=== PATIENT | male | born 1970 | race Caucasian/White ===

== ENCOUNTER 2016-05-01 12:05 | Emergency (ER) | payer MEDICAID ==
[2016-05-01 13:04] VITALS: BP 163/93
--- NOTE | 2016-05-01 13:12 | EDM.PDOC ---
ED HPI Skin/Rash - General Chief Complaint: Skin Complaint Stated Complaint: EAR Time Seen by Provider: 05/01/16 12:11 Source: Reports: Patient History Limitations: Reports: No limitations - History of Present Illness INITIAL COMMENTS - FREE TEXT/NARRATIVE: [HISTORY AND PHYSICAL: 45-year-old male who for 2 days has had left ear pain. Pinna is enlarged exudate is weeping yellowish in color] History of Present Illness: [2 day history of pain] Review of Systems: As per history of present illness and below otherwise all systems reviewed and negative. Past medical history: As per history of present illness and as reviewed below otherwise noncontributory. Surgical history: As per history of present illness and as reviewed below otherwise noncontributory. Social history: No reported history of drug or alcohol abuse. Family history: As per history of present illness and as reviewed below otherwise noncontributory. Physical exam: Alert and oriented male. Answering questions appropriately. HEENT: Atraumatic, normocehpalic, pupils reactive, negative for conjunctival pallor or scleral icterus, mucous membranes moist, throat clear, neck supple, nontender, trachea midline. Left pinna with edema, exudate weeping, yellow in color, surrounding area with erythema Lungs: Clear to auscultation, breath sounds equal bilaterally, chest non tender. Heart: S1S2, regular, negative for clicks, rubs, or JVD. Abdomen: Soft, nondistended, nontender. Negative for masses or hepatossplenmegaly. Negative for costovertebral tenderness. Extremities: Atraumatic, negative for cords or calf pain. Neurovascular unremarkable. Neuro: Awake, alert, oriented. Cranial nerves II through XII unremarkable. Cerebellum unremarkable. Motor and sensory unremarkable throughout. Exam nonfocal. Lidocaine injected in small incision was made small amount of material was expressed. Patient is unable to tolerate more pain at this time. Past admissions to contact Dr. Chaudhary. Diagnostics: [] Therapeutics: [] Impression: [abcess of pinna left ear] Plan: [] Definitive disposition and diagnosis as appropriate pending reevaluation and review of above. ] History of Present Illness: [] Review of Systems: As per history of present illness and below otherwise all systems reviewed and negative. Past medical history: As per history of present illness and as reviewed below otherwise noncontributory. Surgical history: As per history of present illness and as reviewed below otherwise noncontributory. Social history: No reported history of drug or alcohol abuse. Family history: As per history of present illness and as reviewed below otherwise noncontributory. Physical exam: HEENT: Atraumatic, normocehpalic, pupils reactive, negative for conjunctival pallor or scleral icterus, mucous membranes moist, throat clear, neck supple, nontender, trachea midline. Lungs: Clear to auscultation, breath sounds equal bilaterally, chest non tender. Heart: S1S2, regular, negative for clicks, rubs, or JVD. Abdomen: Soft, nondistended, nontender. Negative for masses or hepatossplenmegaly. Negative for costovertebral tenderness. Pelvis: Stable nontender. Genitourinary: Deferred. Rectal: Deferred Extremities: Atraumatic, negative for cords or calf pain. Neurovascular unremarkable. Neuro: Awake, alert, oriented. Cranial nerves II through XII unremarkable. Cerebellum unremarkable. Motor and sensory unremarkable throughout. Exam nonfocal. Have spoken with Dr. Chaudhary who will see the patient in her office. Diagnostics: [] Therapeutics: [let gel] Impression: [abcess to pinna] Plan: [Discharged from the emergency room patient presented to Dr. Chaudhary's office] Definitive disposition and diagnosis as appropriate pending reevaluation and review of above. - Related Data Allergies Allergy/AdvReac Type Severity Reaction Status Date / Time No Known Allergies Allergy Verified 05/01/16 13:03 Home Meds: Ambulatory Orders Medication Instructions Recorded Confirmed Lisinopril [Zestril] 1 tab DAILY 05/01/16 05/01/16 ED ROS GENERAL - Review of Systems Review Of Systems: ROS reveals no pertinent complaints other than HPI. ED EXAM, SKIN/RASH Exam: See Below (see dictation) Course - Vital Signs Last Recorded V/S: Last Vital Signs Temp 36.7 C 05/01/16 12:10 Pulse 126 H 05/01/16 12:10 Resp 18 05/01/16 12:10 BP 163/93 H 05/01/16 12:10 Pulse Ox 95 05/01/16 12:10 - Orders/Labs/Meds Meds: Medications Discontinued Medications Generic Name Dose Route Start Last Admin Trade Name Freq PRN Reason Stop Dose Admin Lidocaine HCl 20 ml 05/01/16 12:43 Xylocaine 1% INJECT 05/01/16 12:44 ONETIME ONE Lidocaine/Tetracaine 1 ml 05/01/16 13:05 05/01/16 13:13 Let Soln TOP 05/01/16 13:06 1 ml ONETIME ONE Administration Departure - Departure Time of Disposition: 13:21 Disposition: Home, Self-Care 01 Condition: good Clinical Impression: Abscess Forms: ED Department Discharge
[2016-05-01] MEDS: Lidocaine/EPINEPHrine/Tetracaine Soln 1 ML TOP ONE (13:13)
[2016-05-01] MEDS: Lidocaine 1% 20 ML MDV INJECT ONE (13:37)
== END 2016-05-01 13:25 | disposition home or self-care (01) ==
LOC: MW.ED 12:05
DX: H66.42 Suppurative otitis media, unspecified, left ear (principal)
CPT/HCPCS: 99282; 99283

== ENCOUNTER 2016-05-14 17:13 | Emergency (ER) | payer MEDICAID ==
[2016-05-14] MEDS ORDERED: methylPREDNISolone Sodium Succinate 125 MG/2 ML SDV IM ONE (17:17)
[2016-05-14] MEDS ORDERED: Famotidine 20 MG Tab PO ONE (17:18)
--- NOTE | 2016-05-14 17:20 | EDM.PDOC ---
ED HPI Allergic Reaction - General Chief Complaint: Allergic Reaction Stated Complaint: PT HAS ALLERGIC REACTION TO MEDICATION Time Seen by Provider: 05/14/16 17:17 - History of Present Illness INITIAL COMMENTS - FREE TEXT/NARRATIVE: History of present illness: [] 45-year-old male with swelling of his lips and hives that started 9.30 am this morning. He took 4 pills of benadryl and drank the benadryl liquid. He is on bactrim. He had similar reaction with augmentin. He denies respiratory distress, sob, cough, throat swelling, wheezing or ther pertinent symptoms. Review of systems: As per history of present illness and below otherwise all systems reviewed and negative. Past medical history: As per history of present illness and as reviewed below otherwise noncontributory. Surgical history: As per history of present illness and as reviewed below otherwise noncontributory. Social history: No reported history of drug or alcohol abuse. Family history: As per history of present illness and as reviewed below otherwise noncontributory. Physical exam: General: Well developed, well nourished in NAD HEENT: Atraumatic, normocephalic, pupils reactive, negative for conjunctival pallor or scleral icterus, mucous membranes moist, throat clear, neck supple, nontender, trachea midline. Lungs: Clear to auscultation, breath sounds equal bilaterally, chest nontender. Heart: S1S2, regular, negative for clicks, rubs, or JVD. Abdomen: Soft, nondistended, nontender. Negative for masses or hepatosplenomegaly. Negative for costovertebral tenderness. Pelvis: Stable nontender. Genitourinary: Deferred. Rectal: Deferred. Extremities: Atraumatic, negative for cords or calf pain. Neurovascular unremarkable. Neuro: Awake, alert, oriented. Cranial nerves II through XII unremarkable. Cerebellum unremarkable. Motor and sensory unremarkable throughout. Exam nonfocal. Diagnostics: [] Therapeutics: [Solu-Medrol IM x1, Pepcid by mouth x1] Impression: [Ju edema most likely secondary to Bactrim] Plan: [Patient like to go home. I advised to monitor him for 15 minutes. DC bactrim: patient agreeed. rx medrol dose pk, pepcid, epi-pen. ] Definitive disposition and diagnosis as appropriate pending reevaluation and review of above. - Related Data Allergies/ADRs: Allergies Allergy/AdvReac Type Severity Reaction Status Date / Time No Known Allergies Allergy Verified 05/14/16 17:30 Home Meds: Home Meds Lisinopril [Zestril] 1 tab PO DAILY 05/01/16 [History] Ascorbic Acid [Vitamin C] 1,000 mg PO DAILY 05/14/16 [History] [place]-3 Fatty Acids [Fish Oil] 300 mg PO DAILY 05/14/16 [History] Past Medical History Cardiovascular History: Reports: Hypertension Respiratory History: Reports: None Gastrointestinal History: Reports: None Genitourinary History: Reports: None Musculoskeletal History: Reports: None Neurological History: Reports: None Psychiatric History: Reports: None Endocrine/Metabolic History: Reports: None Hematologic History: Reports: None Immunologic History: Reports: None Dermatologic History: Reports: Cellulitis - Past Surgical History HEENT Surgical History: Reports: Tonsillectomy Cardiovascular Surgical History: Reports: None Respiratory Surgical History: Reports: None Male Surgical History: Reports: Varicocele resection Musculoskeletal Surgical History: Reports: None Social & Family History - Family History Family Medical History: Noncontributory - Tobacco Use Smoking Status *Q: Current Every Day Smoker Years of Tobacco use: 15 Packs/Tins Daily: 1 - Recreational Drug Use Recreational Drug Use: No ED ROS ALLERGIC REACTION - Review of Systems Review Of Systems: See Below (See history of present illness) ED EXAM GENERAL NO PERIP PULSE - Physical Exam Exam: See Below (History of present illness) Course - Orders/Labs/Meds Meds: Medications Discontinued Medications Generic Name Dose Route Start Last Admin Trade Name Freq PRN Reason Stop Dose Admin Famotidine 20 mg 05/14/16 17:18 05/14/16 17:24 Pepcid PO 05/14/16 17:19 20 mg ONETIME ONE Administration Methylprednisolone Sodium Succinate 125 mg 05/14/16 17:17 05/14/16 17:25 Solu-Medrol IM 05/14/16 17:18 125 mg ONETIME ONE Administration Departure - Departure Time of Disposition: 17:30 Disposition: Home, Self-Care 01 Condition: good Clinical Impression: Angioedema of lips Additional Instructions: The following information is given to patients seen in the emergency department who are being discharged to home. This information is to outline your options for follow-up care. We provide all patients seen in our emergency department with a follow-up referral. The need for follow-up, as well as the timing and circumstances, are variable depending upon the specifics of your emergency department visit. If you don't have a primary care physician on staff, we will provide you with a referral. We always advise you to contact your personal physician following an emergency department visit to inform them of the circumstance of the visit and for follow-up with them and/or the need for any referrals to a consulting specialist. The emergency department will also refer you to a specialist when appropriate. This referral assures that you have the opportunity for follow-up care with a specialist. All of these measure are taken in an effort to provide you with optimal care, which includes your follow-up. Under all circumstances we always encourage you to contact your private physician who remains a resource for coordinating your care. When calling for follow-up care, please make the office aware that this follow-up is from your recent emergency room visit. If for any reason you are refused follow-up, please contact the [facility] Emergency Department at and asked to speak to the emergency department charge nurse.
[2016-05-14 18:16] VITALS: BP 151/76
== END 2016-05-14 17:45 | disposition home or self-care (01) ==
LOC: MW.ED 17:13
DX: T78.3XXA Angioneurotic edema, initial encounter (principal); I10 Essential (primary) hypertension; Z98.890 Other specified postprocedural states; F17.210 Nicotine dependence, cigarettes, uncomplicated; Z79.899 Other long term (current) drug therapy
CPT/HCPCS: 96372; 99283; A9270; J2930

== ENCOUNTER 2016-08-28 20:33 | Emergency (ER) | payer MEDICAID, OTHER ==
[2016-08-28] MEDS ORDERED: Lidocaine 1% 20 ML MDV INJECT ONE (21:19)
[2016-08-28] MEDS ORDERED: Lidocaine 1% 20 ML MDV ONE (21:20)
[2016-08-28] MEDS ORDERED: cefTRIAXone 1,000 MG in Lidocaine 1% 4 ML IM ONE (21:41)
--- NOTE | 2016-08-28 21:54 | EDM.PDOC ---
ED HPI GENERAL MEDICAL PROBLEM - General Chief Complaint: Skin Complaint Stated Complaint: UNK Time Seen by Provider: 08/28/16 20:48 - History of Present Illness INITIAL COMMENTS - FREE TEXT/NARRATIVE: HISTORY AND PHYSICAL: History of present illness: Patient is 45-year-old white male currently incarcerated who was seen prior in the emergency department for cellulitis he was put on clindamycin and reports allergies to penicillin and Bactrim he returns now with slightly increased erythema but no fever chills nausea vomiting or other complaints Review of systems: As per history of present illness and below otherwise all systems reviewed and negative. Past medical history: As per history of present illness and as reviewed below otherwise noncontributory. Surgical history: As per history of present illness and as reviewed below otherwise noncontributory. Social history: No reported history of drug or alcohol abuse. Family history: As per history of present illness and as reviewed below otherwise noncontributory. Physical exam: HEENT: Atraumatic, normocephalic, pupils reactive, negative for conjunctival pallor or scleral icterus, mucous membranes moist, throat clear, neck supple, nontender, trachea midline. Lungs: Clear to auscultation, breath sounds equal bilaterally, chest nontender. Heart: S1S2, regular, negative for clicks, rubs, or JVD. Abdomen: Soft, nondistended, nontender. Negative for masses or hepatosplenomegaly. Negative for costovertebral tenderness. Pelvis: Stable nontender. Genitourinary: Deferred. Rectal: Deferred. Extremities: Right leg he has an excoriated area with some induration minimal fluctuance there is slightly increased erythema compared to prior CMS neurovascular is unremarkable there is no cords or calf pain Neuro: Awake, alert, oriented. Cranial nerves II through XII unremarkable. Cerebellum unremarkable. Motor and sensory unremarkable throughout. Exam nonfocal. Diagnostics: CBC CMP right tib-fib Therapeutics: Patient was anesthetized 1% lidocaine incision and drainage with 11 blade scalpel returned a small amount of serosanguineous material there was some granulation tissue loosely attached that was removed patient wound was packed superficially with quarter inch iodoform gauze and dressed. Rocephin 1 g was given IM Impression: #1 cellulitis right lower extremity #2 status post incision and drainage right leg wound Definitive disposition and diagnosis as appropriate pending reevaluation and review of above. Right Lower Leg Pain Score (Numeric/FACES): 4 - Related Data Allergies Allergy/AdvReac Type Severity Reaction Status Date / Time amoxicillin [From Augmentin] Allergy swlling on Verified 08/28/16 20:41 lips and itching clavulanic acid Allergy swlling on Verified 08/28/16 20:41 [From Augmentin] lips and itching sulfamethoxazole Allergy swelling Verified 08/28/16 20:41 [From Bactrim] on the mouth and itching trimethoprim [From Bactrim] Allergy swelling Verified 08/28/16 20:41 on the mouth and itching Home Meds: Home Meds Lisinopril [Zestril] 1 tab PO DAILY 05/01/16 [History] Ascorbic Acid [Vitamin C] 1,000 mg PO DAILY 05/14/16 [History] [place]-3 Fatty Acids [Fish Oil] 300 mg PO DAILY 05/14/16 [History] Past Medical History HEENT History: Reports: None Cardiovascular History: Reports: Hypertension Respiratory History: Reports: None Gastrointestinal History: Reports: None Genitourinary History: Reports: None Musculoskeletal History: Reports: None Neurological History: Reports: None Psychiatric History: Reports: None Endocrine/Metabolic History: Reports: None Hematologic History: Reports: None Immunologic History: Reports: None Oncologic (Cancer) History: Reports: None Dermatologic History: Reports: Cellulitis - Infectious Disease History Infectious Disease History: Reports: None - Past Surgical History Head Surgeries/Procedures: Reports: None HEENT Surgical History: Reports: Tonsillectomy Cardiovascular Surgical History: Reports: None Respiratory Surgical History: Reports: None Male Surgical History: Reports: Varicocele Resection Musculoskeletal Surgical History: Reports: None Social & Family History - Family History Family Medical History: Noncontributory - Tobacco Use Smoking Status *Q: Current Status Unknown Years of Tobacco use: 15 Packs/Tins Daily: 1 - Caffeine Use Caffeine Use: Reports: None - Recreational Drug Use Recreational Drug Use: No ED ROS GENERAL - Review of Systems Review Of Systems: ROS reveals no pertinent complaints other than HPI. ED EXAM, SKIN/RASH Exam: See Below (See dictation) Course - Vital Signs Last Recorded V/S: Last Vital Signs Temp 36.4 C 08/28/16 20:41 Pulse 78 08/28/16 20:41 Resp 18 08/28/16 20:41 BP 154/76 H 08/28/16 20:41 Pulse Ox 99 08/28/16 20:41 - Orders/Labs/Meds Orders: Active Orders 24 hr Category Date Time Status Tibia Fibula Rt [CR] Stat Exams 08/28/16 21:18 Ordered COMPREHENSIVE METABOLIC PN,CMP [CHEM] Stat Lab 08/28/16 21:30 Received Labs: Laboratory Tests 08/28/16 Range/Units 21:30 WBC 6.51 (4.0-11.0) K/uL RBC 4.77 (4.50-5.90) M/uL Hgb 13.9 (13.0-17.0) g/dL Hct 40.3 (38.0-50.0) % MCV 84.5 (80.0-98.0) fL MCH 29.1 (27.0-32.0) pg MCHC 34.5 (31.0-37.0) g/dL RDW Std Deviation 39.6 (28.0-62.0) fl RDW Coeff of Naun 13 (11.0-15.0) % Plt Count 285 (150-400) K/uL MPV 10.80 (7.40-12.00) fL Neut % (Auto) 55.9 (48.0-80.0) % Lymph % (Auto) 32.1 (16.0-40.0) % [place] % (Auto) 7.5 (0.0-15.0) % Eos % (Auto) 4.0 (0.0-7.0) % Baso % (Auto) 0.5 (0.0-1.5) % Neut # (Auto) 3.6 (1.4-5.7) K/uL Lymph # (Auto) 2.1 (0.6-2.4) K/uL [place] # (Auto) 0.5 (0.0-0.8) K/uL Eos # (Auto) 0.3 (0.0-0.7) K/uL Baso # (Auto) 0.0 (0.0-0.1) K/uL Nucleated RBC % 0.0 /100WBC Nucleated RBCs # 0 K/uL Meds: Medications Discontinued Medications Generic Name Dose Route Start Last Admin Trade Name Freq PRN Reason Stop Dose Admin Ceftriaxone Sodium 1,000 mg/ 4 mls @ 4 mls/sec 08/28/16 21:41 Lidocaine HCl IM 08/28/16 21:42 ONETIME ONE Lidocaine HCl 20 ml 08/28/16 21:19 08/28/16 21:27 Xylocaine 1% INJECT 08/28/16 21:20 3 ml ONETIME ONE Administration Lidocaine HCl Confirm 08/28/16 21:20 08/28/16 21:27 Xylocaine 1% Administered 08/28/16 21:21 Not Given Dose 20 ml .ROUTE .STK-MED ONE Departure - Departure Time of Disposition: 21:53 Disposition: Home, Self-Care 01 Condition: Good Clinical Impression: Cellulitis - Discharge Information Forms: ED Department Discharge Additional Instructions: The following information is given to patients seen in the emergency department who are being discharged to home. This information is to outline your options for follow-up care. We provide all patients seen in our emergency department with a follow-up referral. The need for follow-up, as well as the timing and circumstances, are variable depending upon the specifics of your emergency department visit. If you don't have a primary care physician on staff, we will provide you with a referral. We always advise you to contact your personal physician following an emergency department visit to inform them of the circumstance of the visit and for follow-up with them and/or the need for any referrals to a consulting specialist. The emergency department will also refer you to a specialist when appropriate. This referral assures that you have the opportunity for followup care with a specialist. All of these measure are taken in an effort to provide you with optimal care, which includes your followup. Under all circumstances we always encourage you to contact your private physician who remains a resource for coordinating your care. When calling for followup care, please make the office aware that this follow-up is from your recent emergency room visit. If for any reason you are refused follow-up, please contact the [facility] emergency department at and asked to speak to the emergency department charge nurse. Continue clindamycin as prescribed keep leg elevated wound check and packing removal 24 hours return as needed as discussed - My Orders Last 24 Hours: My Active Orders 08/28/16 21:18 Tibia Fibula Rt [CR] Stat 08/28/16 21:30 COMPREHENSIVE METABOLIC PN,CMP [CHEM] Stat - Assessment/Plan Last 24 Hours: My Active Orders 08/28/16 21:18 Tibia Fibula Rt [CR] Stat 08/28/16 21:30 COMPREHENSIVE METABOLIC PN,CMP [CHEM] Stat
[2016-08-28 22:11] LABS: CHLORIDE,CL 109 mmol/L (98-110); SODIUM,NA 141 mmol/L (136-146)
[2016-08-28 23:04] VITALS: BP 140/72
--- NOTE | 2016-08-29 10:51 | CR ---
EXAM DATE: 08/28/16 PATIENT'S AGE: 45 Patient: DAKOTA COLON Facility: [place], [place] Site . Site : [id number] Study: XRay Extremity Right TIB FIB [id number]/[id number] 10:11:41 PM Ordering Physician: Diamond Apodaca Final Report: Indication: Soft tissue wound in the lower leg Technique: Frontal and lateral views right tibia and fibula Comparison: None Findings: Bones: Alignment is normal. No fractures or bone lesions. No osseous erosions or periosteal reaction. Joint spaces: Unremarkable. Soft tissues: Diffuse soft tissue swelling. No soft tissue gas or foreign body. Impression: Soft tissue swelling. No soft tissue air or bony erosions. Dictated by Jeni Guevara MD @ Aug 28 2016 10:19PM (Electronic Signature) Report Signed by Proxy. DEJUAN
== END 2016-08-28 22:42 | disposition home or self-care (01) ==
LOC: MW.ED 20:33
DX: L03.115 Cellulitis of right lower limb (principal); I10 Essential (primary) hypertension; Z98.890 Other specified postprocedural states; Z79.899 Other long term (current) drug therapy; Z88.1 Allergy status to other antibiotic agents; Z88.2 Allergy status to sulfonamides
CPT/HCPCS: 10061; 36415; 73590; 80053; 85025; 96372; 99283; J0696; 10060; 99282